=== PATIENT | female | born 2005 | race African-American/Black ===

== ENCOUNTER 2024-05-27 16:25 | Emergency (ER) | payer SELFPAY ==
[2024-05-27] MEDS ORDERED: Boostrix 0.5 ML (Tdap) VIAL (>/=7 yrs of age) ONE (17:19)
[2024-05-27] MEDS ORDERED: Lidocaine 1% (PF) 30 ML VIAL ONE (17:19)
== END 2024-05-27 18:34 | disposition home or self-care (01) ==
LOC: CSHERS 16:25
DX: L02.412 Cutaneous abscess of left axilla (principal)
CPT/HCPCS: 10060; 90471; 90715; J2001

== ENCOUNTER 2025-02-26 10:48 | Emergency (ER) | payer SELFPAY ==
[2025-02-26] MEDS ORDERED: Lidocaine 1% (PF) 30 ML VIAL ONE (12:30)
[2025-02-26] MEDS ORDERED: Cephalexin 250 MG CAP ONE (13:46)
== END 2025-02-26 13:54 | disposition home or self-care (01) ==
LOC: CSHERS 10:48
DX: L02.412 Cutaneous abscess of left axilla (principal)
CPT/HCPCS: 10060

== ENCOUNTER 2025-07-30 17:52 | Emergency (ER) | payer SELFPAY ==
[2025-07-30 18:39] LABS: Glucose, Urine (Dipstick) Normal (Negative); Leukocyte 100 (Negative); Protein, Urine (Dipstick) 30 mg/dl (Neg-Trace); Specific Gravity, Urine 1.025 (1.005-1.030)
[2025-07-30 18:51] LABS: Bacteria/HPF 4+ HPF (None Seen); CAUTI Indications for Culture Pelvic or flank pain; Mucous/LPF 1+ LPF (<2+); RBC/HPF 0-3 HPF (0-3); Urine Culture Reflex Yes Yes
[2025-07-30 19:26] LABS: Pregnancy Test - Urine (BHCG) Negative (Negative); Pregu Control Background? CLEAR/WHITE (CLR/WHITE); Pregu Control Bar Appear? YES (CONTROL BAR)
[2025-07-30] MEDS ORDERED: cefTRIAXone (ROCEPHIN) 1 GM VIAL ONE (20:09)
[2025-07-31 14:21] LABS: Chlamydia by PCR, Vaginal Swab Not Detected (NotDetected); GC by PCR, Vaginal Swab Not Detected (NotDetected)
== END 2025-07-30 20:29 | disposition home or self-care (01) ==
LOC: CSHERS 17:52
DX: N89.8 Other specified noninflammatory disorders of vagina (principal); N39.0 Urinary tract infection, site not specified
CPT/HCPCS: 81001; 81025; 87086; 87480; 87491; 87510; 87591; 87660; 96372; 99283; J0696